=== PATIENT | male | born 1960 | race Caucasian/White ===

== ENCOUNTER 2016-05-10 08:51 | Emergency (ER) | payer BC, OTHER ==
[2016-05-10 09:01] VITALS: BP 174/99
--- NOTE | 2016-05-10 09:19 | EDM.PDOC ---
ED HPI Behavioral Health - General Chief Complaint: Behavioral/Psych Stated Complaint: PSYCH EVAL Time Seen by Provider: 05/10/16 09:14 Source of Information: Reports: Patient Exam Limitations: Reports: No limitations - History of Present Illness INITIAL COMMENTS - FREE TEXT/NARRATIVE: 55-year-old male attempts to ER with signs and symptoms of major depressive illness with suicidal ideation. Has no defined plan. Reports depressive symptoms have gotten worse over the last 3 perhaps even 4 months. No specific triggers. Feels he is withdrawn from friends and family. Loss of interests in hobbies losing interest in work although he is still attending work. He does not use alcohol or street drugs. Had a similar experience when he went through divorce for 5 years ago. He is a well for about one month but discontinued it because of side effects. He is very disrupted he for the last 2-3 months. He has mood swings and is quite tearful during the interview. States he just needs someone to talk to. Thoughts of suicide enter his head intermittently with no defined plan. 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 (see below) - SAD Persons Scale (SPS) SPS Sex: Male SPS Age: Between 18-65 Years of Age SPS Depression: Yes SPS Previous Suicide Attempts: Yes SPS Alcohol Abuse/Drug Abuse: No SPS Rational Thinking Loss: No SPS Social Support Deficit: Yes SPS Organized Suicide Plan: No SPS No Spouse/Significant Other: Yes SPS Sickness: No SPS Sad Person Scale Score: 5 - Related Data Allergies Allergy/AdvReac Type Severity Reaction Status Date / Time spider venom Allergy Swollen Verified 05/10/16 09:25 Tongue venom-honey bee Allergy Swollen Verified 05/10/16 09:25 Tongue venom-wasp Allergy Swollen Verified 05/10/16 09:25 Tongue Home Medications: Home Meds Citalopram [Celexa] 20 mg PO DAILY #30 tablet 05/10/16 [Rx] ClonazePAM [KlonoPIN] 2 mg PO BEDTIME #24 tablet 05/10/16 [Rx] Sleeping Pills? 05/10/16 [History] Past Medical History Genitourinary History: Reports: Renal calculus Musculoskeletal History: Reports: Other (see below) Other Musculoskeletal History: Pulled muscle in back recently Psychiatric History: Reports: Anxiety, Depression Other Psychiatric History: Never been diagnosed with anxiet, but states he thinks he does have it - Infectious Disease History Infectious Disease History: Reports: Chicken pox, Measles, Shingles - Past Surgical History HEENT Surgical History: Reports: Tonsillectomy Other HEENT Surgeries/Procedures: has been having recent dental work and extractions being completed Social & Family History - Family History Family Medical History: Noncontributory - Tobacco Use Smoking Status *Q: Current Every Day Smoker Years of Tobacco use: 40 Packs/Tins Daily: 1 Used Tobacco, but Quit: No - Caffeine Use Caffeine Use: Reports: Coffee, Soda - Recreational Drug Use Recreational Drug Use: No Drug Use in Last 12 Months: No Recreational Drug Type: Reports: Cocaine, Marijuana/Hashish, Methamphetamine - Living Situation & Occupation Living situation: Reports: Occupation: employed ED ROS GENERAL - Review of Systems Review Of Systems: See Below Constitutional: Reports: malaise, fatigue. Denies: fever, chills HEENT: Reports: No symptoms Respiratory: Reports: no symptoms Cardiovascular: Reports: No symptoms Endocrine: Reports: fatigue GI/Abdominal: Reports: No symptoms : Reports: no symptoms Musculoskeletal: Reports: no symptoms Skin: Reports: no symptoms Neurological: Reports: headache (location). Denies: trouble speaking, difficulty walking, weakness, change in speech, gait disturbance Psychiatric: Reports: Anxiety, Depression (intermittently. No defined plan.), Mood lability, Suicidal ideation. Denies: Hallucinations (he finds himself for the most part quite sad tearful at times.), Homicidal ideation Hematologic/Lymphatic: Reports: no symptoms Immunologic: Reports: no symptoms ED EXAM, BEHAVIORAL HEALTH - Physical Exam Exam: See Below Exam Limited By: No limitations General Appearance: alert, anxious, moderate distress, other (tearful during the interview.) Eye Exam: bilateral eye: normal inspection Throat/Mouth: Normal inspection, Normal lips, Normal teeth, Normal oropharynx Head: atraumatic, normocephalic Neck: normal inspection, supple, non-tender, full range of motion. No: carotid bruit, lymphadenopathy (L), lymphadenopathy (R), thyromegaly Respiratory/Chest: no respiratory distress, lungs clear, normal breath sounds, no accessory muscle use Cardiovascular: normal peripheral pulses, regular rate, rhythm, no edema, no gallop, no murmur, no rub Extremities: normal inspection, normal range of motion, non-tender, no pedal edema, normal capillary refill Neurological: alert, CN II-XII intact, normal cognition, normal gait, no motor/ sensory deficits, oriented x 3. No: normal mood/affect Psychiatric: alert, normal cognition, oriented, tearful Skin Exam: Warm, Dry, Intact, Normal color, No rash COURSE, BEHAVIORAL HEALTH COMP - Course Vital Signs: Last Vital Signs Temp 36.3 C 05/10/16 08:56 Pulse 75 05/10/16 08:56 Resp 18 05/10/16 08:56 BP 174/99 H 05/10/16 08:56 Pulse Ox 100 05/10/16 08:56 Orders, Labs, Meds: Laboratory Tests 05/10/16 05/10/16 05/10/16 Range/Units 09:34 09:34 09:53 WBC 7.81 (4.23-9.07) K/mm3 RBC 5.44 (4.63-6.08) M/mm3 Hgb 17.0 (13.7-17.5) gm/L Hct 48.9 (40.1-51.0) % MCV 89.9 (79.0-92.2) fl MCH 31.3 (25.7-32.2) pg MCHC 34.8 (32.2-35.5) g/dl RDW Std Deviation 44.2 H (35.1-43.9) fL Plt Count 298 (163-337) K/mm3 MPV 8.9 L (9.4-12.3) fl Neutrophils % (Manual) 70 H (40-60) % Band Neutrophils % 3 (0-10) % Lymphocytes % (Manual) 22 (20-40) % Atypical Lymphs % 0 % Monocytes % (Manual) 4 (2-10) % Eosinophils % (Manual) 1 (0.8-7.0) % Basophils % (Manual) 0 L (0.2-1.2) Platelet Estimate Adequate RBC Morph Comment Normal Sodium 137 (136-145) mEq/L Potassium 4.3 (3.5-5.1) mEq/L Chloride 101 (98-107) mEq/L Carbon Dioxide 25 (21-32) mEq/L Anion Gap 15.3 H (5-15) BUN 17 (7-18) mg/dL Creatinine 1.0 (0.7-1.3) mg/dL Est Cr Clr Drug Dosing TNP Estimated GFR (MDRD) > 60 (>60) mL/min BUN/Creatinine Ratio 17.0 (14-18) Glucose 100 (74-106) mg/dL Calcium 9.1 (8.5-10.1) mg/dL Total Bilirubin 0.3 (0.2-1.0) mg/dL AST 24 (15-37) U/L ALT 43 (16-63) U/L Alkaline Phosphatase 63 (46-116) U/L C-Reactive Protein 0.9 (<1.0) mg/dL Total Protein 7.4 (6.4-8.2) g/dl Albumin 4.0 (3.4-5.0) g/dl Globulin 3.4 gm/dL Albumin/Globulin Ratio 1.2 (1-2) TSH 3rd Generation 3.140 (0.358-3.74) uIU/mL Urine Opiates Screen Negative (NEGATIVE) Ur Buprenorphine Scrn Negative (NEGATIVE) Ur Oxycodone Screen Negative (NEGATIVE) Urine Methadone Screen Negative (NEGATIVE) Ur Propoxyphene Screen Negative (NEGATIVE) Ur Barbiturates Screen Negative (NEGATIVE) Ur Tricyclics Screen Negative (NEGATIVE) Ur Phencyclidine Scrn Negative (NEGATIVE) Ur Amphetamine Screen Negative (NEGATIVE) U Methamphetamines Scrn Negative (NEGATIVE) U Benzodiazepines Scrn Negative (NEGATIVE) U Cocaine Metab Screen Negative (NEGATIVE) U Marijuana (THC) Screen Negative (NEGATIVE) Ethyl Alcohol 0.00 (0.00) gm% Re-Assessment/Re-Exam: 55-year-old male presents to the ED with history of gradually worsening major depressive illness over the last 3 or 4 months. Increasing suicidal ideation and without any well-defined plan. He has no major life stressors or triggers that I can identify. He does not use alcohol or drugs. He is employed. about 4-5 years ago. Did go through some situational depression with this. Sleep has been badly disrupted for the last 2-3 months and is contributing to depressive illness. He has been using Benadryl products or [id number] products to sleep with minimal relief. Does feel anxious at times. Mostly sad withdrawn loss of interest in hobbies. Losing interest in life itself. Please see would benefit from counseling services. I believe he will benefit from trying to reestablish ORQUIDEA sleep pattern and also start him on antidepressant medication. Plan routine labs to include TSH ethanol and a urine drug screen. Re-Assessment/Re-Exam Date: 05/10/16 (lab work at shows a normal white count of 7.81 with a 70% neutrophils and 3% band count. Hemoglobin is 17.0 platelets normal 298,000. Chemistry is completely normal TSH was also normal at 3.14. Urine drug screen negative and blood alcohol is zero. Trying to set up an appointment with through [facility]: [facility] department. Her to phone us back with them the potential appointment time.) Medical Clearance: 05/10/16 11:30:Dr. Willett to get back and appointment will be set up with the patient per her self. She will call him after 5 today with an appointment time hopefully for around 11:30 or noon on Friday. This would've the patient quite well. He was discharged home on citalopram 20 mg once daily in the morning and clonazepam 2 mg at bedtime to help him sleep. He plans on returning to work as he finds this takes his mind off of current problems. Departure - Departure Time of Disposition: 10:57 Disposition: Home, Self-Care 01 Condition: fair Clinical Impression: Major depression Qualifiers: Major depression recurrence: single episode Active/Remission status: currently active Major depression episode severity: severe Psychotic features: without psychotic features Qualified Code(s): F32.2 - Major depressive disorder, single episode, severe without psychotic features Insomnia Qualifiers: Insomnia type: primary Qualified Code(s): F51.01 - Primary insomnia Prescriptions: Citalopram [Celexa] 20 mg PO DAILY #30 tablet ClonazePAM [KlonoPIN] 2 mg PO BEDTIME #24 tablet Instructions: Insomnia Referrals: PCP,None [Primary Care Provider] - Forms: ED Department Discharge Additional Instructions: evaluation in the emergency room today in regards to gradual development of major depressive symptoms with intermittent suicidal ideation. This is in combination with a chronic insomnia sleep disorder which is contributing to the depressive illness. Lab work done today is all within normal limits showing no metabolic or abnormalities abnormalities attributed to the depression. I have made arrange this for you to followup with Dr. Olguin psychologist and she will call you later this afternoon usually after 5:00 to arrange an appointment likely for early next week . In the meantime I will prescribe clonazepam 2 mg to be taken at bedtime to help him sleep. Take this about 45 minutes before planning on going to bed on an empty stomach. Also start antidepressant citalopram 20 mg once a day in the morning usually with some food. The citalopram takes a minimum of 2 weeks to start to ease depression symptoms and should provide 50-60% relief of symptoms over the next 6-8 weeks. Counseling services will be provided by Dr. Olguin. Followup with her personal care physician for followup of refills on medications as needed.
== END 2016-05-10 11:53 | disposition home or self-care (01) ==
LOC: JD.ED 08:51
DX: F32.2 Major depressive disorder, single episode, severe without psychotic features (principal); F51.01 Primary insomnia; F41.9 Anxiety disorder, unspecified; F17.210 Nicotine dependence, cigarettes, uncomplicated; Z98.890 Other specified postprocedural states; Z79.899 Other long term (current) drug therapy; Z91.030 Bee allergy status
CPT/HCPCS: 36415; 80053; 84443; 85025; 86140; 99284; G0478; G0480; 80306; 99283

== ENCOUNTER 2020-12-20 18:02 | Emergency (ER) | payer BC, OTHER ==
[2020-12-20] MEDS ORDERED: Acetaminophen/oxyCODONE 325-5 MG Tab PO ONE (19:21)
--- NOTE | 2020-12-20 19:26 | EDM.PDOC ---
ED HPI GENERAL MEDICAL PROBLEM - General Chief Complaint: Genitourinary Problem Stated Complaint: SWOLLEN TESTICLE Time Seen by Provider: 12/20/20 18:28 Source of Information: Reports: Patient, RN Notes Reviewed History Limitations: Reports: No Limitations - History of Present Illness INITIAL COMMENTS - FREE TEXT/NARRATIVE: Patient is a 60-year-old male who presents to the ER for evaluation of a swollen right testicle. Patient states that he has been having issues with this for a few months, and he resides in [place] he has been seen by a few different urologist and they do recommend a certain procedure to be done but his insurance will not cover this during procedure. He states that his insurance will only cover a drainage of the area. The patient states that he recently drove here from [place], on a 13 or 14-hour drive, and then helped his brother around his house. Notes that it when he typically overexerts himself, that the pain and swelling increases. States that he is prescribed Percocet tablets for pain management, and this does seem to help when the pain is at its worst. He notes that is more of a throbbing pain. He has had no fevers or chills, cough or shortness of breath or any sort of nausea/vomiting/diarrhea. States he has no dysuria, frequency or urgency. States that he is not been having unprotected sex so he has no concern for STDs at this time. Right Groin Pain Score (Numeric/FACES): 6 - Related Data Allergies Allergy/AdvReac Type Severity Reaction Status Date / Time spider venom Allergy Severe Swollen Verified 12/20/20 18:14 Tongue venom-honey bee Allergy Severe Swollen Verified 12/20/20 18:14 Tongue venom-wasp Allergy Severe Swollen Verified 12/20/20 18:14 Tongue Home Meds: Home Meds Acetaminophen/oxyCODONE [Percocet 325-5 MG] 1 tab PO Q6H PRN #20 tab 12/20/20 [Rx] oxyCODONE HCl/Acetaminophen [Oxycodone-Acetaminophen 5-325] 1 each PO TID PRN 12/20/20 [History] Past Medical History Genitourinary History: Reports: Renal Calculus, Other (See Below) Other Genitourinary History: dealing with swollen R testicle Musculoskeletal History: Reports: Other (See Below) Other Musculoskeletal History: Pulled muscle in back recently Psychiatric History: Reports: Anxiety, Depression Other Psychiatric History: Never been diagnosed with anxiety, but states he thinks he does have it Endocrine/Metabolic History: Reports: Obesity/BMI 30+ - Infectious Disease History Infectious Disease History: Reports: Chicken Pox, Measles, Shingles - Past Surgical History HEENT Surgical History: Reports: Tonsillectomy Other HEENT Surgeries/Procedures: has been having recent dental work and extractions being completed Social & Family History - Family History Family Medical History: No Pertinent Family History - Tobacco Use Tobacco Use Status *Q: Current Every Day Tobacco User Years of Tobacco use: 30 Packs/Tins Daily: 0.5 - Caffeine Use Caffeine Use: Reports: Coffee - Recreational Drug Use Recreational Drug Use: No - Living Situation & Occupation Living situation: Reports: Occupation: Employed ED ROS GENERAL - Review of Systems Review Of Systems: Comprehensive ROS is negative, except as noted in HPI. ED EXAM, RENAL/ - Physical Exam Exam: See Below Exam Limited By: No Limitations General Appearance: Alert, WD/WN, No Apparent Distress Respiratory/Chest: No Respiratory Distress, Lungs Clear, Normal Breath Sounds, No Accessory Muscle Use, Chest Non-Tender Cardiovascular: Normal Peripheral Pulses, Regular Rate, Rhythm, No Edema GI/Abdominal: Normal Bowel Sounds, Soft, Non-Tender, No Distention, No Mass (Male) Exam: Scrotal Swelling, Scrotum Tenderness (R) (The right testicle does appear to be about 2 times larger than normal size as compared to the Left testicle.), Testicular Tenderness (R) Extremities: Normal Inspection, Normal Capillary Refill Neurological: Alert, Oriented, Normal Cognition, No Motor/Sensory Deficits Psychiatric: Normal Affect, Normal Mood Skin Exam: Warm, Dry, Intact, Normal Color, No Rash Course - Vital Signs Last Recorded V/S: Last Vital Signs Temp 97.6 F 12/20/20 18:09 Pulse 89 12/20/20 18:09 Resp 16 12/20/20 18:09 BP 135/103 H 12/20/20 18:09 Pulse Ox 96 12/20/20 18:09 - Orders/Labs/Meds Labs: Laboratory Tests 12/20/20 Range/Units 08:35 WBC 8.80 (4.23-9.07) K/mm3 RBC 5.39 (4.63-6.08) M/mm3 Hgb 16.5 (13.7-17.5) gm/dl Hct 48.0 (40.1-51.0) % MCV 89.1 (79.0-92.2) fl MCH 30.6 (25.7-32.2) pg MCHC 34.4 (32.2-35.5) g/dl RDW Std Deviation 45.0 H (35.1-43.9) fL Plt Count 319 (163-337) K/mm3 MPV 8.3 L (9.4-12.3) fl Neut % (Auto) 58.4 (34.0-67.9) % Lymph % (Auto) 32.0 (21.8-53.1) % Mason % (Auto) 7.8 (5.3-12.2) % Eos % (Auto) 1.3 (0.8-7.0) Baso % (Auto) 0.2 (0.1-1.2) % Neut # (Auto) 5.13 (1.78-5.38) K/mm3 Lymph # (Auto) 2.82 (1.32-3.57) K/mm3 Mason # (Auto) 0.69 (0.30-0.82) K/mm3 Eos # (Auto) 0.11 (0.04-0.54) K/mm3 Baso # (Auto) 0.02 (0.01-0.08) K/mm3 Meds: Medications Discontinued Medications Generic Name Dose Route Start Last Admin Trade Name Freq PRN Reason Stop Dose Admin Oxycodone/Acetaminophen 2 tab 12/20/20 19:21 12/20/20 19:33 Acetaminophen/Oxycodone 325-5 Mg Tab PO 12/20/20 19:22 2 tab ONETIME ONE Administration - Re-Assessments/Exams Free Text/Narrative Re-Assessment/Exam: 12/20/20 19:28 Patient presents to the ER for evaluation of his swollen right testicle. Ultrasound was ordered at the time of triage, and this has been obtained, just awaiting the official result. We will give him 2 tablets of oxycodone/acetaminophen 5/325 mg for ongoing pain management. 12/20/20 20:56 CBC is unremarkable at today's visit. I did go over the patient's ultrasound results with Dr. Sigala, urologist at [facility] in [place]. There is a deformity of the right testicle secondary to complex mass measuring 8.4 x 6.0 x 6.6 cm. Uncertain if this is neoplastic represents an adjacent infection. I do not believe that it would be infectious, due to the patient's noninfectious symptoms and completely normal white count. There is also a cyst seen within the right testicle measuring up to 2.1 cm. He does have a small left-sided hydrocele as well. Dr. Sigala did mention that the patient could present to the [facility] ER, tomorrow morning after he has been n.p.o. after midnight tonight, in case the patient does require any sort of surgical management as he is concerned about the possible mass. Departure - Departure Time of Disposition: 21:07 Disposition: Home, Self-Care 01 Condition: Fair Clinical Impression: Mass of right testicle, Testicular pain, right - Discharge Information *PRESCRIPTION DRUG MONITORING PROGRAM REVIEWED*: No *COPY OF PRESCRIPTION DRUG MONITORING REPORT IN PATIENT CAR: No Referrals: PCP,Not In Area [Primary Care Provider] - Forms: ED Department Discharge Additional Instructions: You were evaluated in the ER today for your right testicular swelling and pain. An ultrasound was done at today's visit, and does demonstrate a complex mass secondary to your right testicle, that measures 8.4 x 6.0 x 6.6 cm. There is some concern about this being possibly neoplastic, or cancerous. A urologist named Dr. Sigala was consulted on your behalf. He is located at the [facility] urology clinic in [facility]. Their telephone number is [phone], their appointment line is [phone]. Since you cannot go to the ER tomorrow like he has requested due to transportation issues, please call his clinic early in the morning tomorrow and request an appointment to be seen by him on Friday. He states that he would try to accommodate seeing you in his schedule for management. If they are giving you difficulty scheduling the appointment; please tell them you were seen at the [facility], and evaluated by me CRISTINO Noguera and were told by Dr. Sigala directly that he wanted you to be seen on Friday for management. I would also recommend that you talk with your urologist, tomorrow about the ultrasound results to see if there is any sign of a mass that was identified on any of their studies or work-ups. You were given a prescription for a strong pain medication, oxycodone/acetaminophen 5/25 mg), please take 1 tab every 6 hours as needed for pain not relieved by Tylenol or ibuprofen alone. Please note this medication does contain Tylenol in it, so do not take more than 4000 mg in a 24-hour time span. These medications can be addictive, so please take as few as possible to achieve adequate pain control. These meds can also be quite constipating, recommend that you increase your oral fluid intake and take a stool softener like MiraLAX while taking these medications. Do not drive while taking this medication. This medication was electronically sent to the [place] pharmacy located in the [facility] grocery store. If you have increased pain or swelling to your testicle, if at all possible I would recommend that you go straight to the [facility] ER for ongoing management as they do have urology specialty available at their disposal as we do not. Do not hesitate to return to the ER here however at any time if symptoms change or worsen, and we would gladly be able to help arrange a transfer for further services if warranted. Sepsis Event Note (ED) - Evaluation Sepsis Screening Result: No Definite Risk - Focused Exam Vital Signs: Vital Signs Temp Pulse Resp BP Pulse Ox 12/20/20 18:09 97.6 F 89 16 135/103 H 96
--- NOTE | 2020-12-20 19:43 | US ---
Testicular ultrasound: Multiple real-time images of the testicles were obtained. Comparison: No prior testicular imaging is available. There is deformity of the right testicle secondary to a complex mass measuring 8.4 x 6.0 x 6.6 cm. Uncertain if this is neoplastic or represents an adjacent infection. Cyst is seen within the right testicle measuring up to 2.1 cm. Left epididymis appears homogeneous. Small epididymal head cyst is seen on the left side which measures 3.4 mm. Fluid is also noted around the left testicle compatible with a mild hydrocele. Both testicles show normal arterial and venous blood flow. Measurements: Right testicle: 5.2 x 2.2 x 3.7 cm Left testicle: 4.4 x 2.6 x 2.9 cm Impression: 1. Large complex mass which indents the right testicle. Uncertain if this is neoplastic or represents prominent infection. 2. Cyst is also noted within the right testicle measuring up to 2.1 cm. 3. Small left-sided hydrocele. 4. Small epididymal head cyst on the left side measuring up to 3.4 mm. Diagnostic code #3
[2020-12-20 21:21] VITALS: BP 136/88; PULSE 84
== END 2020-12-20 21:21 | disposition home or self-care (01) ==
LOC: JD.ED 18:02
DX: N50.89 Other specified disorders of the male genital organs (principal); E66.9 Obesity, unspecified; Z68.37 Body mass index [BMI] 37.0-37.9, adult; Z72.0 Tobacco use; Z91.030 Bee allergy status; Z91.038 Other insect allergy status
CPT/HCPCS: 36415; 76870; 85025; 93975; 99284; A9270